=== PATIENT | female | born 1960 | race Two or more races ===

== ENCOUNTER 2023-05-16 23:05 | Inpatient (IN) | payer MEDICAID, OTHER ==
[~2023-05-16] VITALS: Ht 154.9 cm; Wt 84.4 kg
[2023-05-16] MEDS ORDERED: SODIUM CHLORIDE 0.9% 1,000 ML IV ONE (23:45)
[2023-05-16 23:47] VITALS: PULSE 101; RESP 20; O2SAT 93
[2023-05-17 00:10] LABS: Urine Bacteria FEW /hpf (None Seen); Urine Blood Negative /uL (Negative); Urine Clarity HAZY (Clear); Urine Color Colorless (Yellow); Urine Protein, UAD Negative (Negative); Urine Specific Gravity 1.032 (1.001-1.035); Urine Urobilinogen Normal (Negative); Urine WBC 17 /hpf (0 - 5)
[2023-05-17 00:12] LABS: Basophils # (auto) 0.1 10 ^3/uL (0-0.2); Basophils % (auto) 1.1 % (0.0-2.0); Eosinophils # (auto) 0.1 10 ^3/uL (0-0.8); Eosinophils % (auto) 0.7 % (0.0-7.0); Hematocrit 47.5 % (36.0-46.0); Hemoglobin 15.8 g/dL (12.2-16.2); Lymphocytes # (auto) 1.5 10 ^3/uL (0.4-5.4); Lymphocytes % (auto) 15.7 % (10.0-50.0); Mean Corpuscular Hgb Conc. 33.3 g/dL (32.0-36.0); Mean Corpuscular Volume 90.1 fL (80.0-100.0); Monocytes # (auto) 0.8 10 ^3/uL (0-1.3); Monocytes % (auto) 8.7 % (0.0-12.0); Neutrophils # (auto) 7.1 10 ^3/uL (1.6-8.6); Neutrophils % (auto) 73.8 % (37.0-80.0); Nucleated Red Blood Cells % 0.1 %; Red Blood Cells 5.27 10^6/uL (4.0-5.20); Red Cell Distribution Width 13.6 % (11.8-14.3); White Blood Cell 9.6 10^3/uL (4.4-10.8)
[2023-05-17 00:28] LABS: Calcium 8.7 mg/dL (8.5-10.1); Potassium 4.8 mmol/L (3.5-5.1)
[2023-05-17 00:30] LABS: Total Protein 6.8 g/dL (6.4-8.2)
[2023-05-17 00:35] LABS: BUN/Creatinine Ratio 18.9 (10.0-20.0)
[2023-05-17 00:37] LABS: Bilirubin, Total 0.4 mg/dL (0.2-1.0)
[2023-05-17 01:10] LABS: Platelet Estimate Decreased
[2023-05-17] MEDS ORDERED: INSULIN LANTUS (GLARGINE) 1 /0.01ml (100units/ml) SC ONE (01:45)
[2023-05-17] MEDS ORDERED: DEXTROSE (50%) 50ML SYRG IV PRN ×2 (01:45→04:45)
[2023-05-17] MEDS ORDERED: InsuLIN R (HUMAN) 100 UNITS in SODIUM CHL 0.9% 99 ML IV SCH (01:45)
[2023-05-17] MEDS ORDERED: SODIUM CHLORIDE 0.9% 1,000 ML IV SCH ×3 (01:45→07:45)
[2023-05-17 01:56] LABS: Base Excess -6.5 mmol/L (-2.0-2.0)
[2023-05-17] MEDS ORDERED: SODIUM CHLORIDE 0.9% 1,000 ML IV ONE ×2 (02:15→03:30)
[2023-05-17] MEDS ORDERED: InsuLIN REG 1unit/0.01ml Soln (100units/ml) IV ONE ×4 (02:15→04:00)
[2023-05-17] MEDS ORDERED: ACCU-CHEK COMFORT CURVE STRIP VI SCH (03:00)
[2023-05-17] MEDS ORDERED: TEMAZEPAM 15 MG CAP PO PRN (04:45)
[2023-05-17] MEDS ORDERED: ONDANSETRON HCL 4 MG/2 ML VIAL IV PRN (04:45)
[2023-05-17 05:06] LABS: Albumin 2.9 g/dL (3.4-5.0); Calcium 7.8 mg/dL (8.5-10.1); Potassium 3.9 mmol/L (3.5-5.1)
[2023-05-17 05:09] LABS: BUN/Creatinine Ratio 20.5 (10.0-20.0); Bilirubin, Total 0.3 mg/dL (0.2-1.0); Total Protein 6.5 g/dL (6.4-8.2)
[2023-05-17] MEDS: cefTRIAXone 1GM/50ML D5W 50 ML IV SCH (06:29)
[2023-05-17] MEDS: SODIUM CHLORIDE 0.9% 1,000 ML IV SCH ×2 (06:51→17:09)
[2023-05-17] MEDS: ACCU-CHEK COMFORT CURVE STRIP VI SCH ×3 (08:00→16:14)
[2023-05-17] MEDS: InsuLIN REG 1unit/0.01ml Soln (100units/ml) SC SCH ×3 (09:04→17:07)
[2023-05-17] MEDS: PANTOPRAZOLE 40 MG TAB PO SCH (10:00)
[2023-05-17 11:09] LABS: BUN/Creatinine Ratio 15.5 (10.0-20.0); Calcium 8.2 mg/dL (8.5-10.1); Potassium 4.4 mmol/L (3.5-5.1)
[2023-05-17] MEDS ORDERED: InsuLIN REG 1unit/0.01ml Soln (100units/ml) SC SCH (11:45)
[2023-05-17 12:21] LABS: Cholesterol 213 mg/dL (< 200); HDL Cholesterol 43 mg/dL (40-59); LDL Cholesterol 119 mg/dL (< 100); Triglycerides 349 mg/dL (< 150)
[2023-05-17 12:50] VITALS: PULSE 70; RESP 19; O2SAT 96
[2023-05-17 13:00] VITALS: BP 109/82; PULSE 84; RESP 18; TEMP 97.8; O2SAT 95
[2023-05-17 17:06] VITALS: BP 117/66; PULSE 70; RESP 19; TEMP 98.2; O2SAT 93
[2023-05-17] MEDS: ACETAMINOPHEN 325 MG TAB PO PRN (18:20)
[2023-05-17 20:00] VITALS: PULSE 78; RESP 18; O2SAT 96
[2023-05-17 22:00] VITALS: BP 103/69; PULSE 78; RESP 18; TEMP 98.4; O2SAT 96
[2023-05-17] MEDS ORDERED: INSULIN LANTUS (GLARGINE) 1 /0.01ml (100units/ml) SC SCH (22:00)
[2023-05-18] MEDS: ACETAMINOPHEN 325 MG TAB PO PRN (00:34)
[2023-05-18 01:03] LABS: Urine Bacteria FEW /hpf (None Seen); Urine Blood Negative /uL (Negative); Urine Budding Yeast FEW /hpf (None Seen); Urine Clarity HAZY (Clear); Urine Protein, UAD Negative (Negative); Urine Specific Gravity 1.036 (1.001-1.035); Urine Urobilinogen Normal (Negative); Urine WBC 59 /hpf (0 - 5); Urine pH 5.5 (5.0-8.0)
[2023-05-18 01:07] LABS: Urine Color Straw (Yellow)
[2023-05-18] MEDS: ACCU-CHEK COMFORT CURVE STRIP VI SCH ×4 (04:39→11:52)
[2023-05-18] MEDS: InsuLIN REG 1unit/0.01ml Soln (100units/ml) SC SCH ×4 (04:40→12:00)
[2023-05-18] MEDS: cefTRIAXone 1GM/50ML D5W 50 ML IV SCH (06:46)
[2023-05-18 07:39] LABS: Potassium 3.5 mmol/L (3.5-5.1)
[2023-05-18 07:47] LABS: Albumin 2.4 g/dL (3.4-5.0); BUN/Creatinine Ratio 18.1 (10.0-20.0); Bilirubin, Total 0.2 mg/dL (0.2-1.0)
[2023-05-18 08:00] VITALS: PULSE 95; RESP 18; O2SAT 96
[2023-05-18 09:00] VITALS: BP 107/72; PULSE 95; RESP 18; TEMP 98.6; O2SAT 100
[2023-05-18] MEDS: PANTOPRAZOLE 40 MG TAB PO SCH (10:00)
[2023-05-18] MEDS ORDERED: INSULIN LANTUS (GLARGINE) 1 /0.01ml (100units/ml) SC SCH (10:00)
[2023-05-18] MEDS ORDERED: INSLANTI SC (10:16)
[2023-05-18] MEDS ORDERED: NITR-52 PO (10:16)
[2023-05-18] MEDS ORDERED: INSREGI SC (10:16)
[2023-05-18] MEDS ORDERED: METF-370 PO (10:16)
[2023-05-18 12:17] VITALS: BP 107/72; PULSE 95; RESP 18; TEMP 98.6; O2SAT 100
[2023-05-18 13:00] VITALS: BP 119/78; PULSE 85; RESP 20; TEMP 98; O2SAT 97
== END 2023-05-18 13:30 | disposition home or self-care (01) | DRG 420 ==
LOC: ER 23:05 → OVERFLOW 05-17 04:40 → WEST WING 05-17 12:46
PROVIDERS: ADMIT Internal Medicine Pulmonary Disease; ATTEND Internal Medicine
DX: E11.65 Type 2 diabetes mellitus with hyperglycemia (principal); N17.9 Acute kidney failure, unspecified; E87.1 Hypo-osmolality and hyponatremia; N39.0 Urinary tract infection, site not specified; R74.01 Elevation of levels of liver transaminase levels; E86.0 Dehydration
CPT/HCPCS: 36415; 71045; 80048; 80053; 80061; 81001; 82010; 82962; 83036; 85025; 87086; 96361; 96365; 96372; 96375; 96376; G0378; J0696; J1815